=== PATIENT | female | born 1940 | race Caucasian/White ===

== ENCOUNTER 2017-06-15 09:35 | Day surgery (SDC) | payer MEDICARE, OTHER ==
[2017-06-15] MEDS ORDERED: Lactated Ringers 1,000 ML IV SCH (10:00)
[2017-06-15] MEDS ORDERED: Propofol 200 MG/20 ML SDV ONE (11:00)
[2017-06-15] MEDS ORDERED: fentaNYL 100 MCG/2 ML SDV ONE (11:01)
[2017-06-15 13:15] VITALS: BP 130/55
--- NOTE | 2017-06-16 07:49 | OR ---
DATE OF PROCEDURE: 06/15/2017 PREOPERATIVE DIAGNOSIS: Colon cancer screening. POSTOPERATIVE DIAGNOSIS: Unremarkable colonoscopy. PROCEDURE: Colonoscopy to the cecum. ANESTHESIA: IV anesthesia with monitored anesthesia care. INDICATION: This 77-year-old white female is referred for a colonoscopy for colon cancer screening. Her last colonoscopic exam she says was done 10 years ago. I counseled her for the procedure including risks, alternatives, and she gave her informed consent to proceed. DESCRIPTION OF PROCEDURE: The patient was placed in the left lateral decubitus position. IV anesthesia was administered by the Anesthesia Service. Time-out was held. A rectal exam was performed, which was unremarkable. The flexible video Olympus colonoscope was introduced through her anus, up her rectum, and out her colon all the way to the cecum. To reach the cecum, we did have to apply some abdominal compression. Once the cecum was reached, the scope was slowly withdrawn examining the mucosa throughout. No mucosal abnormalities were noted. The scope was retroflexed in the rectum with the distal rectum appearing unremarkable. The scope was straightened and removed. She tolerated the procedure well. Williams Campbell MD /[id number]
== END 2017-06-15 13:05 | disposition home or self-care (01) ==
LOC: JP.SDS 09:35
PROVIDERS: ATTEND Surgery
DX: Z12.11 Encounter for screening for malignant neoplasm of colon (principal); I10 Essential (primary) hypertension; E78.5 Hyperlipidemia, unspecified; J45.909 Unspecified asthma, uncomplicated; G47.33 Obstructive sleep apnea (adult) (pediatric)
CPT/HCPCS: G0121; J2704; J3010; J7120

== ENCOUNTER 2017-12-28 17:01 | Emergency (ER) | payer MEDICARE, OTHER ==
--- NOTE | 2017-12-28 18:15 | EDM.PDOC ---
ED HPI GENERAL MEDICAL PROBLEM - General Chief Complaint: Back Pain or Injury Stated Complaint: BACK PAIN BETWEEN SHOULDERS - [facility]ENT [facility] Time Seen by Provider: 12/28/17 18:00 Source of Information: Reports: Patient, Family History Limitations: Reports: No Limitations - History of Present Illness INITIAL COMMENTS - FREE TEXT/NARRATIVE: 77 yo female was seen today in [facility] and referred to the ER for several days of L scapular area pain. Pain waxes and wanes, but has been progressive over time. She denies any injury. No fever or cough. No SOB. No alleviating or aggravating sx's. Had an EKG in [facility] that was normal. Patient and worried about cardiac dz. Onset: Gradual Onset Date: 12/24/17 Duration: Day(s): Location: Reports: Back (L upper) Quality: Reports: Ache Severity: Moderate Improves with: Reports: None Worsens with: Reports: Other (? 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 (No change with any OTC med.) Left Upper Back Pain Score (Numeric/FACES): 5 - Related Data Allergies Allergy/AdvReac Type Severity Reaction Status Date / Time No Known Allergies Allergy Verified 12/28/17 18:21 Home Meds: Home Meds Atenolol [Tenormin] 50 mg PO DAILY 06/13/17 [History] Hydrochlorothiazide 25 mg PO DAILY 06/13/17 [History] Multivitamin [Multivitamins] 1 tab PO DAILY 06/13/17 [History] Naproxen Sodium 220 mg PO DAILY PRN 06/13/17 [History] Simvastatin [Zocor] 20 mg PO BEDTIME 06/13/17 [History] Budesonide/Formoterol Fumarate [Symbicort 80-4.5 Mcg Inhaler] 2 puff IH BID [History] Past Medical History HEENT History: Reports: Cataract, Impaired Vision Cardiovascular History: Reports: High Cholesterol, Hypertension Respiratory History: Reports: Asthma Gastrointestinal History: Reports: Cholelithiasis, Hemorrhoids Genitourinary History: Reports: None [employer]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 Musculoskeletal History: Reports: Fracture, Osteoarthritis - Infectious Disease History Infectious Disease History: Reports: Chicken Pox, Measles - Past Surgical History HEENT Surgical History: Reports: Cataract Surgery Cardiovascular Surgical History: Reports: None Respiratory Surgical History: Reports: None GI Surgical History: Reports: Cholecystectomy, Colonoscopy Female Surgical History: Reports: Breast Biopsy, D&C Musculoskeletal Surgical History: Reports: None, Other (See Below) Other Musculoskeletal Surgeries/Procedures:: Bunionectomy right foot Social & Family History - Tobacco Use Smoking Status *Q: Never Smoker Second Hand Smoke Exposure: No - Caffeine Use Caffeine Use: Reports: Coffee - Alcohol Use Days Per Week of Alcohol Use: 6 Number of Drinks Per Day: 1 Total Drinks Per Week: 6 - Recreational Drug Use Recreational Drug Use: No ED ROS GENERAL - Review of Systems Review Of Systems: See Below Constitutional: Reports: No Symptoms HEENT: Reports: No Symptoms Respiratory: Reports: No Symptoms Cardiovascular: Reports: No Symptoms Endocrine: Reports: No Symptoms GI/Abdominal: Reports: No Symptoms : Reports: No Symptoms Musculoskeletal: Reports: Back Pain (L upper) Skin: Reports: No Symptoms Neurological: Reports: No Symptoms Psychiatric: Reports: No Symptoms ED EXAM, UPPER BACK/NECK PAIN - Physical Exam Exam: See Below Exam Limited By: No Limitations General Appearance: Alert, WD/WN, No Apparent Distress Ears Exam: Normal External Exam, Normal Canal, Hearing Grossly Normal Nose Exam: Normal Inspection, Normal Mucousa, No Blood Throat/Mouth Exam: Normal Inspection, Normal Lips, Normal Teeth, Normal Oropharynx, Normal Voice, No Airway Compromise Head Exam: Atraumatic, Normocephalic Neck Exam: Non-Tender, Full Range of Motion, Normal Alignment, Normal Inspection Cardiovascular/Respiratory: Regular Rate, Rhythm, No M/R/G, Normal Breath Sounds , No Respiratory Distress. No: Rales, Rhonchi, Wheezing GI/Abdominal: Normal Bowel Sounds, Soft, Non-Tender, No Distention Back Exam: Normal Inspection, Full Range of Motion. 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 Course - Vital Signs Last Recorded V/S: Last Vital Signs Temp 36.4 C 12/28/17 18:10 Pulse 53 L 12/28/17 18:10 Resp 12 12/28/17 18:29 BP 154/76 H 12/28/17 18:29 Pulse Ox 100 12/28/17 18:29 - Orders/Labs/Meds Orders: Active Orders 24 hr Category Date Time Status Chest 2V [CR] Stat Exams 12/28/17 18:08 Ordered Labs: Laboratory Tests 12/28/17 Range/Units 18:08 Troponin I 0.028 (0.000-0.056) ng/mL - Radiology Interpretation Free Text/Narrative:: CXR-negative Departure - Departure Time of Disposition: 19:53 Disposition: Home, Self-Care 01 Condition: Good Clinical Impression: Upper back pain on left side - Discharge Information Referrals: Good Jama MD [Primary Care Provider] - Forms: ED Department Discharge - My Orders Last 24 Hours: My Active Orders 12/28/17 18:08 Chest 2V [CR] Stat - Assessment/Plan Last 24 Hours: My Active Orders 12/28/17 18:08 Chest 2V [CR] Stat
[2017-12-28 18:30] VITALS: BP 154/76
--- NOTE | 2017-12-29 09:05 | CR ---
Chest 2V HISTORY: Pain COMPARISON: None FINDINGS: Cardiac size and pulmonary vessels normal. There are no infiltrates or effusions. No pneumo thorax. The osseous structures appear normal. IMPRESSION: No acute pulmonary disease.
== END 2017-12-28 20:20 | disposition home or self-care (01) ==
LOC: JP.ED 17:01
DX: M54.6 Pain in thoracic spine (principal); E78.00 Pure hypercholesterolemia, unspecified; I10 Essential (primary) hypertension; Z79.899 Other long term (current) drug therapy
CPT/HCPCS: 36415; 71046; 71046-26; 84484; 99283; 99284

== ENCOUNTER 2020-10-24 21:15 | Emergency (ER) | payer MEDICARE, OTHER ==
[2020-10-24 21:39] VITALS: BP 152/72; PULSE 63
--- NOTE | 2020-10-24 23:17 | CRLCR ---
INDICATION: SOB TECHNIQUE: Chest 2 views. COMPARISON: 12/28/17 FINDINGS: Cardiovascular and mediastinum: Heart size and vasculature are normal in caliber and appearance. Mediastinum is within normal limits. Lungs and pleural spaces: Lungs are clear. No sign of infiltrate or mass. No sign of pleural effusion. No pneumothorax. Bones and soft tissues: No significant findings. IMPRESSION: Unremarkable chest. Dictated by: Akil Dupree MD @ 10/24/2020 23:16:01 (Electronically Signed)
[2020-10-25] MEDS ORDERED: Potassium Chloride 20 MEQ Tab.ER PO ONE (00:08)
== END 2020-10-25 00:24 | disposition home or self-care (01) ==
LOC: JP.ED 21:15
DX: E87.6 Hypokalemia (principal); I10 Essential (primary) hypertension; Z20.828 Contact with and (suspected) exposure to other viral communicable diseases
CPT/HCPCS: 36415; 71046; 80048; 81001; 84484; 85025; 99283; 99285; A9270; U0002

== ENCOUNTER 2025-02-11 01:28 | Emergency (ER) | payer MEDICARE, OTHER ==
[2025-02-11] MEDS ORDERED: Sodium Chloride 0.9% 10 ML Syringe FLUSH PRN (01:34)
[2025-02-11] MEDS: Ondansetron 4 MG/2 ML SDV IVPUSH ONE (01:50)
[2025-02-11] MEDS: Morphine 2 MG/ML SYRINGE IVPUSH ONE (01:50)
[2025-02-11 03:10] VITALS: BP 167/79; PULSE 60
== END 2025-02-11 04:37 | disposition home or self-care (01) ==
LOC: JP.ED 01:28
DX: S73.101A Unspecified sprain of right hip, initial encounter (principal); I10 Essential (primary) hypertension; E78.00 Pure hypercholesterolemia, unspecified; J45.909 Unspecified asthma, uncomplicated; Z79.899 Other long term (current) drug therapy; Z90.49 Acquired absence of other specified parts of digestive tract; W01.0XXA Fall on same level from slipping, tripping and stumbling without subsequent striking against object, initial encounter; Y93.89 Activity, other specified
CPT/HCPCS: 73502; 73700; 76377; 96374; 96375; 99284; J2270; J2405